=== PATIENT | female | born 1945 | race Caucasian/White ===

== ENCOUNTER → 2017-05-06 | Outpatient (CLI) | payer MEDICARE, BC ==
[~2017-05-06] MED LIST: ESTR0.3T PO; GADOBUTROL 7.5 MMOL/7.5 ML VIAL INT ART ONE; IOHEXOL 300 MG/ML 50 ML VIAL. INT ART ONE; LIDOCAINE 1% Multi-Dose 20 ML VIAL. ID ONE
--- NOTE | 2017-05-06 15:32 | KCIC ---
SHOULDER ARTHROGRAM LEFT History: Left shoulder pain Technique: After discussing the risk and benefits of the procedure, the patient signed a written consent form for left shoulder injection prior to MRI. Patient was placed in supine position on the fluoroscopy table. The external skin site overlying the left shoulder was prepped and draped in the usual sterile fashion. Betadine was utilized for cleansing solution. 1% lidocaine was utilized for local anesthesia to the depth of the left humeral head. 22-gauge spinal needle was advanced under fluoroscopy to depth of the bone. A mixture of 5 cc Omnipaque 300, 10 cc saline, 0.1 cc Gadavist was injected during fluoroscopic visualization. Needle was removed. There were no immediate complications. Patient was sent to MRI suite for MRI evaluation of the left shoulder. Fluoroscopy time 29 seconds, 1 image Impression: 1. Technically successful left shoulder injection prior to MRI without immediate complication. Electronically signed by: Shamir Hagan MD (05/06/2017 3:28 PM)
--- NOTE | 2017-05-06 16:43 | KCIC ---
MR arthrogram of the left shoulder Indication: Left shoulder pain for a couple of years. No known injury. No prior surgery. Technique: Intra-articular contrast injected into the glenohumeral joint by a different radiologist, who will dictate that procedure separately. Routine 4 plane sequences were obtained, including ABER positioning. COMPARISON: Nonarthrogram MRI August 07, 2014. Findings: Moderate motion degradation despite repeating images. Acromioclavicular joint: Acromioclavicular joint is mildly degenerative. Rotator cuff: Full thickness tear of the anterior supraspinatus tendon has increased in size slightly, now measuring about 15 mm AP diameter compared with 10 mm previously. Mild retraction is similar to the prior study. No new muscle atrophy. Subscapularis tendinosis without evidence of a tear. Contrast enters the subdeltoid bursa. 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 No evidence of a labral tear. Biceps tendon is intact. No bone lesion or acute fracture. No acute soft tissue injury. IMPRESSION: 1. Rotator cuff tear involving the anterior supraspinatus tendon has mildly increased in size since previous study. 2. No other new internal derangement. Electronically signed by: Mitchel Michaud MD (05/06/2017 4:40 PM)
== END | disposition home or self-care (01) ==
LOC: KCIC 12:41
PROVIDERS: ATTEND Orthopaedic Surgery
DX: M25.512 Pain in left shoulder (principal)
CPT/HCPCS: 73040; 73222; Q9967; A9585